=== PATIENT | male | born 1970 | race Caucasian/White ===

== ENCOUNTER 2018-09-08 16:30 | Inpatient (IN) ==
[2018-09-08 17:04] LABS: BLOOD TYPE ARTERIAL; METHB 1.5 % (0.0-1.5); O2(CT) 16.1 mL/dL (15.0-23.0); O2HB 92.7 % (95.0-99.0); PCO2(98.6) 42 mmHg (35-45); PO2(98.6) 67 mmHg (60-100); SAMPLE BLOOD; SAO2 96.5 % (95.0-100.0); THB 12.3 g/dL (11.5-17.4); pH(98.6) 7.37 (7.35-7.45)
[2018-09-08 17:06] LABS: ALLEN TEST YES; MODALITY ROOM AIR
[2018-09-08] MEDS ORDERED: NS 1,000 ML ONE (17:12)
[2018-09-08] MEDS ORDERED: HUMULIN R IV ONE ×2 (17:13→18:40)
[2018-09-08] MEDS ORDERED: NS 1,000 ML IV ONE ×2 (17:13→19:01)
[2018-09-08 17:16] LABS: BASO# 0.02 X1000 (0.0-0.2); BASO% 0.3 % (0.0-0.8); EOS# 0.42 X1000 (0.0-0.7); EOS% 6.9 % (0.0-10.0); HEMATOCRIT 34.9 % (42.0-52.0); HEMOGLOBIN 11.7 g/dL (14.0-18.0); IMM GRAN# 0.01 X1000 (0.0-0.04); IMM GRAN% 0.2 % (0.0-0.5); LYMPH# 1.02 X1000 (1.2-3.4); LYMPH% 16.7 % (20.5-51.1); MCH 25.9 PG (27-31); MCHC 33.5 g/dL (33-37); MCV 77.4 FL (81-99); MONO# 0.53 X1000 (0.11-0.59); MONO% 8.7 % (1.7-9.3); MPV 9.4 FL (7.4-10.4); NEUT# 4.12 X1000 (1.4-6.5); NEUT% 67.2 % (42.2-75.2); PLT 246 X1000 (130-400); RBC 4.51 XMIL (4.7-6.1); WBC 6.12 X1000 (4.8-10.8)
[2018-09-08 17:18] LABS: BILIRUBIN URINE NEGATIVE (NEGATIVE); BLOOD URINE NEGATIVE (NEGATIVE); CLARITY CLEAR (CLEAR); COLOR YELLOW; KETONE URINE NEGATIVE (NEGATIVE); LEUKOCYTES URINE NEGATIVE (NEGATIVE); NITRITE URINE NEGATIVE (NEGATIVE); PROTEIN URINE NEGATIVE (NEGATIVE); UROBILINOGEN URINE NORMAL
[2018-09-08 17:20] LABS: URINE BACTERIA NEGATIVE /HFP; URINE CAST NONE SEEN /LPF; URINE CRYSTAL NONE SEEN /HPF; URINE EPITHELIAL CELLS <10 /HPF (<10); URINE SOURCE CLEAN CATCH; URINE WBC <10 /HPF (<10); URINE YEAST NONE SEEN /HPF
[2018-09-08 18:05] LABS: ALBUMIN 3.7 g/dL (3.5-5.0); CALCIUM 8.8 mg/dL (8.8-10.2); CREATININE 1.3 mg/dL (0.7-1.2); POTASSIUM 4.1 mmol/L (3.5-5.1); TOTAL BILIRUBIN 0.2 mg/dL (0.20-1.00)
--- NOTE | 2018-09-08 18:08 | EKG Report ---
Test Performed on : 09/08/2018 5:40:39 PM Test Reason : htn blood sugar Blood Pressure : / mmHG Vent. Rate : 099 BPM Atrial Rate : 099 BPM P-R Int : 172 ms QRS Dur : 082 ms QT Int : 320 ms P-R-T Axes : 062 059 016 degrees QTc Int : 410 ms Normal sinus rhythm. T wave abnormality, consider inferior ischemia Abnormal ECG No previous ECGs available Unconfirmed Result
[2018-09-08] MEDS ORDERED: ZOFRAN ODT PO PRN (19:01)
[2018-09-08] MEDS ORDERED: TYLENOL PO PRN (19:01)
[2018-09-08] MEDS ORDERED: D50W SYRINGE IV ONE (19:02)
--- NOTE | 2018-09-08 19:06 | PROVIDER DOCUMENTATION ---
This chart was entered by Kinza Bella Scribe, acting as scribe for Marcos Giles MD. HPI-General Adult - General Chief Complaint: High Blood Sugar Stated Complaint: HIGH BLOOD SUGAR Time Seen by Provider: 09/08/18 17:06 Source: patient, family (sister and son) Allergies/Adverse Reactions: Patient Allergies Allergy/AdvReac Type Severity Reaction Status Date / Time No Known Allergies Allergy Verified 09/08/18 16:46 Home Medications: Home Medication List Medication Instructions Recorded Confirmed Last Taken Type Unobtainable [Home Meds 09/08/18 09/08/18 Unknown History Unobtainable] - History of Present Illness -Gen Adult Nature of Presenting Problems: 48 yowm went to [facility] this morning to speak with his psych dr and get medications. pt was back home 30 min [place] and got a phone call from [facility] to come to ed for BGL 727 and to go to closest ER. pt did not have a dx of DM. pt sts he has noticed the lst 3 days he has had increased urination and thirst and has not felt well Location of Pain/Injury: reports: other (sts has not felt well but no real complaint of pain) Severity: reports: moderate Onset/Duration: reports: 3 days ago Timing: reports: still present Context/Activities at Onset: reports: light activity Modifying Factors: improves with: nothing Associated Symptoms: reports: EENT symptoms (blurry), genitourinary problems ( increased urination), other (increased thirst). denies: back/neck pain, chest pain, dizziness, fever/chills, headaches, nausea, vomiting, weakness, trouble walking Similar Symptoms Previously?: No Recently seen or treated by another doctor?: Yes (saw [facility] psych dr this am in [place]) - Diabetes Related Context Context: reports: high blood sugar (727) Review of Systems - Adult - REVIEW OF SYSTEMS - ADULT Constitutional: reports: fatique, other (has not felt well last 3 days). denies : chills, fever Eyes: reports: see HPI, blurred vision. denies: double vision Ears, Nose, Mouth & Throat: reports: no symptoms reported Cardiovascular: denies: chest pain, palpitations Respiratory: denies: cough, shortness of breath, wheezing Gastrointestinal: denies: abdominal pain, diarrhea, nausea, vomiting Genitourinary: reports: see HPI, other (increased urination) Musculoskeletal: reports: no symptoms reported Integumentary: reports: no symptoms reported Neurological: denies: dizziness/vertigo, headache/migraines, slurred speech, syncope, tremors Psychiatric: reports: no symptoms reported Endocrine: reports: see HPI, increased thirst, polyuria Hematologic/Lymphatic: reports: no symptoms reported Allergic/Immunologic: reports: no symptoms reported All Other Systems: Reviewed and Negative Past History - Adult - PAST MEDICAL HISTORY-ADULT Review of Records: reports: Old Records Reviewed, Nursing Assessment Review, Medications Reviewed, Social history reviewed & non-contributory. Major Childhood Illnesses: reports: denies history Cardiovascular: reports: HTN, hyperlipidemia Respiratory: reports: denies history Gastrointestinal: reports: denies history Genitourinary: reports: denies history Musculoskeletal: reports: chronic pain, neck/back injury Neurological: reports: denies history Psychiatric: reports: anxiety, ptsd Endocrine/Immune: reports: denies history Other Conditions: reports: denies history - IMMUNIZATION STATUS Childhood Immunizations: See Nurse Assessment Flu Vaccine: See Nurse Assessment - FAMILY HISTORY Family History: reviewed, not pertinent - SOCIAL HISTORY Smoking: cigarettes, greater than 1 pack/day Provider spent 3-5 mins advising pt. on dangers of tobacco.: Discussed manners to quit use, and f/u contacts for add'l counseling. Substance Use: denies Alcohol Use Frequency: never Living Situation: family Physical Exam-General - PHYSICAL EXAM-ADULT Initial Vital Signs Reviewed: Yes - CONSTITUTIONAL General Appearance: appears well, alert, no apparent distress, obese - EYES Eyes: PERRL/EOMI, pink conjunctivae - HEAD, EARS, NOSE, MOUTH & THROAT HENMT: moist mucous membranes - NECK Neck: full range of motion, normal inspection - RESPIRATORY Respiratory: chest non-tender, lungs clear, normal breath sounds - CARDIOVASCULAR Cardiovascular: normal peripheral pulses, tachycardia (119) - GASTROINTESTINAL (ABDOMEN) Abdominal Exam: normal bowel sounds, non tender, soft - LYMPHATIC Lymphatic: no adenopathy - MUSCULOSKELETAL Back Exam: normal inspection, other (has chronic back pain) Progress - PLAN OF CARE/RESULTS Progress/Plan/Lab Results: Vital Signs - 8 hr 09/08/18 16:39 Temperature 98 F Pulse Rate 119 H Respiratory Rate 18 Blood Pressure 145/105 O2 Sat by Pulse Oximetry 94 L Laboratory Results - last 24 hr 09/08/18 09/08/18 16:30 16:44 Specimen Type ARTERIAL Sample Site R RADIAL pH 7.37 pCO2 42 pO2 67 HCO3 24.0 Base Excess -1.0 Oxyhemoglobin 92.7 L ABG O2 Sat (Calculated) 16.1 ABG O2 Saturation 96.5 ABG Carboxyhemoglobin 2.40 ABG Methemoglobin 1.5 Dieter Test YES A-a O2 Difference 30.0 Total Hemoglobin 12.3 Lactate 3.80 H Blood Gas Modality ROOM AIR FiO2 % 21.0 POC Glucose 500 H Orders Category Date Time Status Cardiac Monitoring DIRECTED Care 09/08/18 16:47 Active Finger Stick Blood Sugar (ED) DIRECTED Care 09/08/18 16:47 Active Nursing- Obtain EKG once Care 09/08/18 16:47 Active Saline Loc NOW Care 09/08/18 16:47 Active ABG [RESP] Routine Lab 09/08/18 16:30 Completed ACETONE SERUM [CHEM] Stat Lab 09/08/18 16:47 Ordered CBC WITH DIFF [HEME] Stat Lab 09/08/18 16:47 Ordered COMPREHENSIVE METABOLIC PANEL [CHEM] Stat Lab 09/08/18 17:02 Ordered TROPONIN T Stat Lab 09/08/18 17:[address] W/POSS RFLX CULT [URINALYSIS] Stat Lab 09/08/18 16:50 Received EKG [EKG] Stat Ther 09/08/18 16:47 Ordered Result Diagrams: 09/08/18 17:10 09/08/18 17:10 - EKG 1 Time of EKG reading by physician:: 17:49 EKG Read and Signed by:: Marcos Giles EKG Interpretation (*Must complete 3 of following elements*): Abnormal Rate: 99 Rhythm: nsr [place]: normal QRS: normal SC Interval: normal Comments: t wave abnormality, consider inferior ischemia - CONSULTS/PCP/HOSPITALIST Notification #1 *Consult/PCP/Hospitalist*: hospitalist dr bullard Time Discussed: 17:12 Reason/Comments: phone consult Consult Disposition: Will see in ED Departure - Departure Date of Disposition Decision: 09/08/18 Time of Disposition Decision: 19:05 DIAGNOSIS: New onset type 2 diabetes mellitus, Hyperglycemia, Renal insufficiency, mild Disposition: ADMITTED INPATIENT 09 Certified Medical Emergency: Emergent Condition: Stable Referrals and Follow-Ups: None,PCP [Primary Care Provider] - - Critical Care Note This patient required my direct & personal management of CC.: No Comments: new onset DM with BGL greater then 500. this am pt had labs drawn at [facility] and was called and said BGL 727 Attestation - Physician/ [place] Attestation Patient care was provided by Advanced Practice Provider:: No The physician spent face to face time with patient:: Yes Advanced Practice Provider documentation review:: Supervising physician onsite and consulted in the evaluation and care of this patient. The physician did have a face to face encounter with the patient. This chart was documented by the indicated scribe, (Kinza Bella Scribe) and accurately reflects the services I performed and decisions made by me, Marcos Giles MD, as attested by the provider's signature.
[2018-09-08] MEDS ORDERED: LITHOBID PO SCH (23:15)
[2018-09-08] MEDS ORDERED: MOTRIN PO PRN (23:15)
[2018-09-08] MEDS ORDERED: OXY IR PO PRN (23:15)
[2018-09-08] MEDS ORDERED: ROZEREM PO SCH (23:30)
[2018-09-08] MEDS ORDERED: SEROQUEL PO SCH (23:30)
[2018-09-08] MEDS: MS CONTIN PO SCH (23:52)
--- NOTE | 2018-09-09 02:53 | HISTORY AND PHYSICAL ---
CHIEF COMPLAINT: Hyperglycemia. HISTORY OF PRESENT ILLNESS: Patient is a 66-year-old male who had actually [facility] today to see his psychiatrist to get medication adjustments. Shortly after arrival home, he had a call from the [facility] and was told his blood sugar was 724 and to go to the closest ER, which he did. He has no previous diagnosis of diabetes. Does note for the past couple of days he has had increased urination, increased thirst and has generally not felt well. ALLERGIES: No known drug allergies. MEDICATIONS: I do not have a complete accurate list. Patient himself is unaware of his medications. Notes that his sister is on the way with a list. PAST MEDICAL HISTORY: Hypertension, hyperlipidemia, chronic pain, chronic neck and back pain due to a previous injury, history of anxiety and PTSD. REVIEW OF SYSTEMS: As noted above. Patient otherwise notes he has been tired, fatigued. He has not really felt well for the past couple of days. Denies any chest pain, palpitations. Denies any fevers or chills. Denies any dysuria, urinary frequency. Denies any chest pain, palpitation. Denies any dysuria although does note that he has had polyuria and polydipsia. Denies any weight gain, weight loss, but does note that he does not check his weight on any regular basis. FAMILY HISTORY: Positive family history for diabetes in dad, grandma and his aunt. SOCIAL HISTORY: Patient does smoke at least a pack a day. Denies alcohol or other illicit substance use. PHYSICAL EXAMINATION: VITAL SIGNS: Temperature 98 degrees, pulse 119, respiratory 18, BP 145/105, saturating 94% on room air. GENERAL: Patient is awake, alert. He is very pleasant to talk with. He is in no current respiratory distress. HEENT: Normocephalic. NECK: Supple. CARDIOVASCULAR: Regular rate. No murmurs. CHEST: Clear, nonlabored. No wheezing. ABDOMEN: Soft, nondistended. No masses. EXTREMITIES: Moves all extremities. No edema. NEUROLOGIC: No focal changes. SKIN: Warm, dry. No rashes. LABS: CBC normal. CMP with sodium 123, creatinine 1.3, glucose at 849. ASSESSMENT: 1. New onset diabetes with hyperglycemia. The patient does not appear to be acidotic at the current time. His bicarbonate is 22. Acetone is negative and pH is 7.37. He is not in DKA. 2. Elevated carboxyhemoglobin. Again discussed with patient the importance of stopping smoking. 3. Hypoglycemia. His blood sugar corrects to roughly 130 to 131. 4. Posttraumatic stress disorder. 5. Hypertension. 6. High cholesterol. PLAN: We will continue patient in the hospital. IV fluids. His blood sugars have actually dropped to 200-300 per the medications that he was given in the ER. We will continue to follow him. We will not place him on insulin drip but we will use a modified sliding scale. cc: Afshin Phelan MD
[2018-09-09 05:53] LABS: BASO# 0.02 X1000 (0.0-0.2); BASO% 0.3 % (0.0-0.8); EOS# 0.52 X1000 (0.0-0.7); EOS% 8.1 % (0.0-10.0); HEMATOCRIT 33.6 % (42.0-52.0); HEMOGLOBIN 10.8 g/dL (14.0-18.0); IMM GRAN# 0.01 X1000 (0.0-0.04); IMM GRAN% 0.2 % (0.0-0.5); LYMPH# 1.33 X1000 (1.2-3.4); LYMPH% 20.7 % (20.5-51.1); MCH 25.1 PG (27-31); MCHC 32.1 g/dL (33-37); MCV 78.1 FL (81-99); MONO# 0.43 X1000 (0.11-0.59); MONO% 6.7 % (1.7-9.3); MPV 9.3 FL (7.4-10.4); NEUT# 4.11 X1000 (1.4-6.5); PLT 239 X1000 (130-400); RDW 13.2 % (11.5-14.5); WBC 6.42 X1000 (4.8-10.8)
[2018-09-09 06:17] LABS: HEMOGLOBIN A1C 10.9 % (4.8-6.0)
[2018-09-09 06:48] LABS: AGAP 10; ALBUMIN 3.3 g/dL (3.5-5.0); ALKALINE PHOSPHATASE 90 U/L (32-122); BUN 13 mg/dL (8-22); CALCIUM 8.2 mg/dL (8.8-10.2); CHLORIDE 103 mmol/L (98-107); COSMO 286; ESTIMATED GFR > 60; GLUCOSE 310 mg/dL (70-104); GOT 27 U/L (10-34); GPT 37 U/L (10-44); MAGNESIUM 1.9 mg/dL (1.5-2.7); PHOSPHORUS 2.8 mg/dL (2.7-4.5); POTASSIUM 3.9 mmol/L (3.5-5.1); SODIUM 137 mmol/L (136-145); TCO2 24 mmol/L (25-35); TOTAL PROTEIN 6.2 g/dL (6.3-8.3)
[2018-09-09] MEDS ORDERED: NEURONTIN PO SCH (09:00)
[2018-09-09] MEDS: MS CONTIN PO SCH (09:15)
[2018-09-09] MEDS ORDERED: SILDENAFIL CITRATE 100 MG PO PRN (09:25)
[2018-09-09] MEDS ORDERED: ZOLOFT PO SCH (09:30)
[2018-09-09] MEDS ORDERED: FLOMAX PO SCH (09:30)
[2018-09-09] MEDS ORDERED: GLUCOPHAGE PO SCH (09:30)
[2018-09-09 12:08] VITALS: BP 144/91
[2018-09-09] MEDS ORDERED: MINIPRESS PO SCH (21:00)
--- NOTE | 2018-09-15 09:26 | DISCHARGE SUMMARY ---
ADMISSION DATE: 09/08/2018 DISCHARGE DATE: 09/09/2018 DISCHARGE DIAGNOSES: 1. New onset diabetes with an elevated A1c. 2. Post traumatic stress disorder. 3. Hypertension. 4. High cholesterol. 5. Elevated carboxyhemoglobin. 6. Chronic tobacco abuse. 7. Obesity. PLAN: Discussed with patient the importance of stopping smoking. Discussed with him the treatment for his blood sugar. HOSPITAL COURSE: Thankfully, he had an uneventful hospital course. He was admitted to the hospital with his glucose elevated at 849, but he was not acidotic. His pH was 7.37. He was placed on insulin to start with and then was maintained with diet and Glucophage. Thankfully, he had an uneventful hospital course. DISPOSITION: The patient will be discharged home on Glucophage 500 twice daily. Discussed with him how to check his blood sugars, as well as how to watch his diet. He will continue his gabapentin 300 three times a day, ibuprofen p.r.n., morphine ER 30 twice daily, oxycodone 5 four times daily per his pain clinic. We will continue his Minipress 5 mg, Seroquel 100 at bedtime, Zoloft 200 daily, Viagra 100 four times daily, Flomax 0.4 daily, testosterone injections, and lithium. We discussed with patient how to check his blood sugars, how to watch his diet. Discussed with him that he needs to follow up with primary care of his choice within one to two weeks to recheck his blood sugars, as well as medications. TIME SPENT: Greater than 30 minutes was spent in total care. cc: Afshin Phelan MD
== END 2018-09-09 13:10 | disposition home or self-care (01) | DRG 639 ==
LOC: P.ED 16:30 → SUATTDRO 20:36 → P.MEDSURG 20:36
PROVIDERS: ADMIT Family Medicine; ATTEND Family Medicine
CPT/HCPCS: 80053; 81001; 82009; 82805; 82948; 83036; 83735; 84100; 84484; 85025; 93005; 99285; A9270; J7030; XXXXX